=== PATIENT | female | born 1980 | race Caucasian/White ===

== ENCOUNTER 2017-07-31 08:25 | Outpatient (CLI) | payer OTHER | END 2017-07-31 08:36 | disposition home or self-care (01) | LOC: SONOGRAMA 08:25 → MAMO-SONO 08:45 | DX: R10.11 Right upper quadrant pain (principal) ==

== ENCOUNTER 2018-06-06 09:18 | Outpatient (CLI) | payer OTHER | END 2018-06-06 09:29 | disposition home or self-care (01) | LOC: MRI 09:18 | DX: R94.5 Abnormal results of liver function studies (principal); R93.3 Abnormal findings on diagnostic imaging of other parts of digestive tract | CPT/HCPCS: 74182 ==

== ENCOUNTER 2019-10-26 10:34 | Outpatient (CLI) | payer OTHER | END 2019-10-26 10:41 | disposition home or self-care (01) | LOC: MAMO-SONO 10:34 | PROVIDERS: ATTEND Specialist | DX: Z12.31 Encounter for screening mammogram for malignant neoplasm of breast (principal); N60.01 Solitary cyst of right breast; N60.02 Solitary cyst of left breast; N83.8 Other noninflammatory disorders of ovary, fallopian tube and broad ligament ==

== ENCOUNTER 2021-06-03 06:48 | Day surgery (SDC) | payer OTHER ==
[~2021-06-03 06:48] MED LIST: ALDACTONE100 MG PO; CRESTOR5 MG PO; D3 + K2 DOTS 11 EACH PO; REGLAN5 MG/5 ML PO; SYNTHROID88 MCG PO
== END 2021-06-03 17:00 | disposition home or self-care (01) ==
LOC: CIR.AMB 06:48
PROVIDERS: ATTEND Orthopaedic Surgery Hand Surgery
DX: M65.232 Calcific tendinitis, left forearm (principal); Z20.822 Contact with and (suspected) exposure to COVID-19

== ENCOUNTER 2022-07-13 07:58 | Outpatient (CLI) | payer OTHER | END 2022-07-13 08:11 | disposition home or self-care (01) | LOC: SONOGRAMA 07:58 | PROVIDERS: ATTEND Specialist | DX: D25.2 Subserosal leiomyoma of uterus (principal) ==